=== PATIENT | male | born 1965 | race Caucasian/White ===

== ENCOUNTER 2018-04-21 20:18 | Emergency (ER) | payer MEDICAID ==
[~2018-04-21 20:18] MED LIST: ATEN-65 PO; CLI150 PO; DIA5 PO; DOXY-181 PO; HYDR12.556 PO; LISI20TA29 PO; LOR5/325 PO; MECL25TA34 PO; MOMR ENA; OMEP-218 PO; ONDA4TAB PO; VALS-25 PO
--- NOTE | 2018-04-21 20:19 | ER Report ---
History and Physical Time Seen By MD: 20:21 HPI/ROS CHIEF COMPLAINT: Shortness of breath, sweats, chills and fever HISTORY OF PRESENT ILLNESS: 52-year-old male who is normally very good health. He had not worked out in a while. He participate in a basketball game on Sunday afternoon for 2 hours. He had a mild dry cough prior to participating. Patient was exhausted after the game. He remained exhausted throughout the weekend having a fever and chills. He's had a productive cough of colored sputum. He's been having some diaphoresis. Patient denies history of cardiac disease. He's had no chest pain. He's never had rhabdomyolysis before. Patient denies exposure to ill contacts. Patient did not get a flu vaccine this season. P atient describes diffuse body aches. Patient notes some nausea but no vomiting. He's had no dysuria. He notes no rashes or swollen joints. She has never smoked and has no history of COPD. REVIEW OF SYSTEMS: Respiratory: As above Cardiovascular: No chest pain, no palpitations. Gastrointestinal: No vomiting, no abdominal pain. Musculoskeletal: No back pain. Allergies: Coded Allergies: Penicillins (Verified Allergy, Unknown, 01/19/14) Home Meds Active Scripts Codeine Phosphate/Guaifenesin (Robafen AC Oral Solution) 10 Mg-100 Mg/5 Ml Liquid, 5-10 ML PO Q4H PRN for cough, #120 Prov:CRYSTAL NASCIMENTO DO 04/21/18 Levofloxacin 500 Mg Tab (LEVAQUIN 500 MG TAB) 500 Mg Tablet, 500 MG PO DAILY for pnumonia, #6 TAB Prov:CRYSTAL NASCIMENTO DO 04/21/18 Mometasone Furoate (NASONEX) 17 Gm Aspers, 2 SPRAYS JUAN M BID, #1 BOTTLE 0 Refills Prov:SHERRY MELO MD 01/10/17 Doxycycline Hyclate (DOXYCYCLINE HYCLATE) 100 Mg Capsule, 100 MG PO BID, #20 CAPSULE 0 Refills Prov:SHERRY MELO MD 01/10/17 Reported Medications Hydrochlorothiazide (HYDROCHLOROTHIAZIDE) 12.5 Mg Capsule, 1 TAB PO QDAY, CAPSULE 01/10/17 Atenolol (ATENOLOL) 25 Mg Tablet, 1 TAB PO QDAY, TAB TAKE ONE TABLET BY MOUTH ONCE A DAY 01/17/14 Lisinopril (LISINOPRIL) 20 Mg Tablet, 40 MG PO QDAY 01/17/14 Reviewed Nurses Notes: Yes Old Medical Records Reviewed: Yes Hx Smoking: No Smoking Status: Never Smoker Hx Substance Use Disorder: No Hx Alcohol Use: No Constitutional Vital Sign - Last 24 Hours 04/21/18 04/21/18 04/21/18 04/21/18 20:23 20:23 20:30 20:33 Temp 99.5 Pulse 92 Resp 20 B/P (MAP) 158/110 158/110 (126) 156/113 (127) Pulse Ox 87 O2 Delivery Room Air O2 Flow Rate 2.0 04/21/18 04/21/18 04/21/18 04/21/18 20:45 20:48 21:00 21:15 Pulse 84 Resp 21 B/P (MAP) 151/94 (113) 150/93 (112) 157/93 (114) Pulse Ox 93 04/21/18 04/21/18 04/21/18 04/21/18 21:18 21:30 21:35 21:45 Pulse 90 85 Resp 15 24 B/P (MAP) 143/95 (111) ???/??? (1665) Pulse Ox 95 94 04/21/18 04/21/18 04/21/18 04/21/18 22:00 22:05 22:15 22:30 Pulse 80 80 Resp 19 17 B/P (MAP) 141/96 (111) 141/91 (108) Pulse Ox 95 04/21/18 04/21/18 04/21/18 04/21/18 22:30 22:30 22:35 22:45 Pulse 83 Resp 9 B/P (MAP) 138/88 (105) 142/89 (106) Pulse Ox 94 96 O2 Delivery Nasal Cannula O2 Flow Rate 2.0 04/21/18 04/21/18 04/21/18 04/21/18 23:05 23:11 23:12 23:28 Pulse 87 84 98 Resp 16 16 16 Pulse Ox 90 88 O2 Delivery Room Air Physical Exam Vital signs stable, low-grade fever, pulse ox borderline at 88%, normal respiratory rate, without tachypnea General Appearance: The patient is alert, has no immediate need for airway protection and no current signs of toxicity., Skin, red, warm, diaphoretic HEENT: Pupils equal and round no injection. Oropharynx no redness or exudate, mucous. Membranes are moist Respiratory: Rhonchorous respirations bilaterally, expiratory wheezing throughout. Cardiac: regular rate and rhythm Gastrointestinal: Abdomen is soft and non tender, no masses, bowel sounds normal. Musculoskeletal: Neck: Neck is supple and non tender. No lymphadenopathy, no JVD Extremities have full range of motion and are non tender. No edema, no calf ten derness Skin: No rashes or lesions. DIFFERENTIAL DIAGNOSIS: After history and physical exam differential diagnosis was considered for shortness of breath including but not limited to pulmonary infectious process, COPD, asthma, pulmonary embolus and congestive heart failure. Medical Decision Making Data Points Result Diagram: 04/21/18202904/21/182029 Laboratory Hematology Test 04/21/18 20:30 04/21/18 20:36 04/21/18 20:44 Red Blood Count 5.62 M/uL (4.00-5.60) Mean Corpuscular Volume 85.1 fL (80.0-96.0) Mean Corpuscular Hemoglobin 30.3 pg (26.0-33.0) Mean Corpuscular Hemoglobin Concent 35.6 g/dL (32.0-36.0) Red Cell Distribution Width 12.4 % (11.5-14.5) Mean Platelet Volume 7.1 fL (7.2-11.1) Neutrophils (%) (Auto) 83.9 % (39.4-72.5) Lymphocytes (%) (Auto) 7.5 % (17.6-49.6) Monocytes (%) (Auto) 8.0 % (4.1-12.4) Eosinophils (%) (Auto) 0.1 % (0.4-6.7) Basophils (%) (Auto) 0.5 % (0.3-1.4) Nucleated RBC Relative Count (auto) 0.1 /100WBC Neutrophils # (Auto) 10.1 K/uL (2.0-7.4) Lymphocytes # (Auto) 0.9 K/uL (1.3-3.6) Monocytes # (Auto) 1.0 K/uL (0.3-1.0) Eosinophils # (Auto) 0.0 K/uL (0.0-0.5) Basophils # (Auto) 0.1 K/uL (0.0-0.1) Nucleated RBC Absolute Count (auto) 0.01 K/uL Erythrocyte Sedimentation Rate 21 mm/HOUR (0-20) D-Dimer Quantitative (PE/DVT) 0.63 ug/ml (0-0.50) Sodium Level 137 mmol/L (137-145) Potassium Level 3.3 mmol/L (3.5-5.0) Chloride Level 100 mmol/L (98-107) Carbon Dioxide Level 25 mmol/L (22-30) Blood Urea Nitrogen 15 mg/dl (9-21) Creatinine 1.10 mg/dl (0.66-1.25) Glomerular Filtration Rate Calc > 60.0 Random Glucose 134 mg/dl (75-110) Lactate 0.9 mmol/L (0.7-2.1) Calcium Level 8.8 mg/dl (8.4-10.2) Total Bilirubin 0.9 mg/dl (0.2-1.3) Aspartate Amino Transf (AST/SGOT) 33 U/L (0-35) Alanine Aminotransferase (ALT/SGPT) 44 U/L (0-56) Alkaline Phosphatase 79 U/L (0-126) Total Creatine Kinase 365 U/L (55-170) Troponin I 0.021 ng/ml C-Reactive Protein 8.5 mg/dl (<1.0) Total Protein 7.6 g/dl (6.3-8.2) Albumin 4.2 g/dl (3.5-5.0) Influenza Virus Type A (PCR) Negative (NEGATIVE) Influenza Virus Type B (PCR) Negative (NEGATIVE) Urine Color Yellow Urine Clarity Clear Urine pH 5.0 pH (4.8-9.5) Urine Specific [place] 1.025 Urine Protein 30 mg/dL (NEGATIVE) Urine Glucose (UA) Negative mg/dL (NEGATIVE) Urine Ketones 20 mg/dL (NEGATIVE) Urine Blood Negative (NEGATIVE) Urine Nitrite Negative (NEGATIVE) Urine Bilirubin Negative (NEGATIVE) Urine Urobilinogen 2.0 mg/dL (0.2-1.9) Urine Leukocyte Esterase Negative (NEGATIVE) Urine RBC 5 /HPF (0-2/HPF) Urine WBC 3 /HPF (0-5/HPF) Urine Squamous Epithelial Cells None /LPF (</=FEW) Urine Bacteria Negative /HPF (NONE-FEW) Urine Mucus Few /HPF (NONE-FEW) Chemistry Test 04/21/18 20:30 04/21/18 20:36 04/21/18 20:44 White Blood Count 12.0 k/uL (4.5-11.0) Red Blood Count 5.62 M/uL (4.00-5.60) Hemoglobin 17.0 g/dL (14.0-18.0) Hematocrit 47.8 % (42.0-52.0) Mean Corpuscular Volume 85.1 fL (80.0-96.0) Mean Corpuscular Hemoglobin 30.3 pg (26.0-33.0) Mean Corpuscular Hemoglobin Concent 35.6 g/dL (32.0-36.0) Red Cell Distribution Width 12.4 % (11.5-14.5) Platelet Count 226 K/uL (150-450) Mean Platelet Volume 7.1 fL (7.2-11.1) Neutrophils (%) (Auto) 83.9 % (39.4-72.5) Lymphocytes (%) (Auto) 7.5 % (17.6-49.6) Monocytes (%) (Auto) 8.0 % (4.1-12.4) Eosinophils (%) (Auto) 0.1 % (0.4-6.7) Basophils (%) (Auto) 0.5 % (0.3-1.4) Nucleated RBC Relative Count (auto) 0.1 /100WBC Neutrophils # (Auto) 10.1 K/uL (2.0-7.4) Lymphocytes # (Auto) 0.9 K/uL (1.3-3.6) Monocytes # (Auto) 1.0 K/uL (0.3-1.0) Eosinophils # (Auto) 0.0 K/uL (0.0-0.5) Basophils # (Auto) 0.1 K/uL (0.0-0.1) Nucleated RBC Absolute Count (auto) 0.01 K/uL Erythrocyte Sedimentation Rate 21 mm/HOUR (0-20) D-Dimer Quantitative (PE/DVT) 0.63 ug/ml (0-0.50) Glomerular Filtration Rate Calc > 60.0 Lactate 0.9 mmol/L (0.7-2.1) Calcium Level 8.8 mg/dl (8.4-10.2) Total Bilirubin 0.9 mg/dl (0.2-1.3) Aspartate Amino Transf (AST/SGOT) 33 U/L (0-35) Alanine Aminotransferase (ALT/SGPT) 44 U/L (0-56) Alkaline Phosphatase 79 U/L (0-126) Total Creatine Kinase 365 U/L (55-170) Troponin I 0.021 ng/ml C-Reactive Protein 8.5 mg/dl (<1.0) Total Protein 7.6 g/dl (6.3-8.2) Albumin 4.2 g/dl (3.5-5.0) Influenza Virus Type A (PCR) Negative (NEGATIVE) Influenza Virus Type B (PCR) Negative (NEGATIVE) Urine Color Yellow Urine Clarity Clear Urine pH 5.0 pH (4.8-9.5) Urine Specific [place] 1.025 Urine Protein 30 mg/dL (NEGATIVE) Urine Glucose (UA) Negative mg/dL (NEGATIVE) Urine Ketones 20 mg/dL (NEGATIVE) Urine Blood Negative (NEGATIVE) Urine Nitrite Negative (NEGATIVE) Urine Bilirubin Negative (NEGATIVE) Urine Urobilinogen 2.0 mg/dL (0.2-1.9) Urine Leukocyte Esterase Negative (NEGATIVE) Urine RBC 5 /HPF (0-2/HPF) Urine WBC 3 /HPF (0-5/HPF) Urine Squamous Epithelial Cells None /LPF (</=FEW) Urine Bacteria Negative /HPF (NONE-FEW) Urine Mucus Few /HPF (NONE-FEW) Coagulation Test 04/21/18 20:30 D-Dimer Quantitative (PE/DVT) 0.63 ug/ml Urinalysis Test 04/21/18 20:44 Urine Color Yellow Urine Clarity Clear Urine pH 5.0 pH (4.8-9.5) Urine Specific [place] 1.025 Urine Protein 30 mg/dL (NEGATIVE) Urine Glucose (UA) Negative mg/dL (NEGATIVE) Urine Ketones 20 mg/dL (NEGATIVE) Urine Blood Negative (NEGATIVE) Urine Nitrite Negative (NEGATIVE) Urine Bilirubin Negative (NEGATIVE) Urine Urobilinogen 2.0 mg/dL (0.2-1.9) Urine Leukocyte Esterase Negative (NEGATIVE) Urine RBC 5 /HPF (0-2/HPF) Urine WBC 3 /HPF (0-5/HPF) Urine Squamous Epithelial Cells None /LPF (</=FEW) Urine Bacteria Negative /HPF (NONE-FEW) Urine Mucus Few /HPF (NONE-FEW) EKG/Imaging EKG Interpretation 12 lead EK Rhythm: normal sinus rhythm [place]: normal QRS: normal ST segments: normal, no evidence of ischemia Imaging Results: CT scan of the CTA pulmonary angiogram was obtained. The results of the study are EXAMINATION: CTA of the chest with IV contrast HISTORY: Hypoxia. Dyspnea. TECHNIQUE: Pulmonary embolus protocol - Thin axial CT images of the chest were obtained with IV contrast during maximal pulmonary arterial opacification. Reconstruction of the source data includes multiplanar 2D coronal and sagittal reconstructed images, and 3D coronal and sagittal MIP images. [employer] images have been stored on PACS. One of the following dose optimization techniques was utilized in the performance of this exam: Automated exposure control; adjustment of the mA and/or kV according to the patient's size; or use of an iterative reconstruction technique. Specific details can be referenced in the facility's radiology CT exam operational policy. Contrast: 75 mL of IV Isovue-370. COMPARISON: None. FINDINGS: Pulmonary arteries: The pulmonary arteries are well opacified, without suspicious filling defect. Heart, aorta, and great vessels: Normal caliber thoracic aorta, without aneurysm or dissection. Normal heart size. No pericardial effusion. Lungs and pleura: Patchy infiltrate in the left upper lobe posteriorly is compatible with pneumonia. The left lower lobe and right lung are clear. No pl eural effusion. The central airways are patent. Mediastinum and sebas: Negative. Visualized upper abdomen: Unremarkable. Chest wall: Negative. Bones: Negative. IMPRESSION: 1. No evidence of pulmonary embolism. 2. Patchy infiltrate in the left upper lobe, compatible with pneumonia. The study was read by the radiologist. I viewed the images myself on the PACS system. ED Course/Re-evaluation Clinical Indication for ER IV: Hydration, IV Access ED Course Patient was admitted to an examination room. H&P was done. The differential diagnoses was considered. Patient's been ill for 2 days. He has a productive cough. He's been having fever, chills and sweats. Patient notes that 2 days ago. He began to have a dry cough. He played basketball aggressively for 2 hours on Sunday afternoon which exhausted him. He's been run down and exhausted the whole weekend. He's been having drenching sweats. She has no history of cardiac disease. He does not have chest pain while exerting himself. Patient's never had rhabdomyolysis. Patient's diagnostic show any show a mildly elevated white blood cell count of 12,000. There is a left shift. Patient's EKG is unremarkable for evidence of ischemia. His troponin is negative. His d-dimer is elevated and he has hypoxic into the upper 80s. A CTA pulmonary angiogram is ordered. His chest x-ray is canceled. The CTA pulmonary angiogram shows no evidence of pulmonary embolus and there is a patchy infiltrate in the left upper lobe consistent with pneumonia. Patient's treated with Rocephin 1 g IV and Levaquin to go home. Agents given. Sodium Medrol 125 mg. He receives DuoNeb 3. He's dispensed an albuterol inhaler. Discharged home on Levaquin and Robitussin before meals cough syrup. He is advised to increase his intake of fluids and ibuprofen 600 mg 3 times daily. Agents advised a low threshold return for any worsening. Decision to Disposition Date: Apr 21, 2018 Decision to Disposition Time: 22:59 Depart Departure Latest Vital Signs Vital Signs Date Time Temp Pulse Resp B/P (MAP) Pulse Ox O2 Delivery O2 Flow Rate FiO2 04/21/18 23:28 98 16 04/21/18 23:12 88 Room Air 04/21/18 22:45 142/89 (106) 04/21/18 22:30 2.0 04/21/18 20:23 99.5 Impression: Primary Impression: Community acquired pneumonia Condition: Improved Disposition: HOME OR SELF-CARE New Scripts Codeine Phosphate/Guaifenesin (Robafen AC Oral Solution) 10 Mg-100 Mg/5 Ml Liquid 5-10 ML PO Q4H PRN for cough, #120 Prov: CRYSTAL NASCIMENTO DO 04/21/18 Levofloxacin 500 Mg Tab (LEVAQUIN 500 MG TAB) 500 Mg Tablet 500 MG PO DAILY for pnumonia, #6 TAB Prov: CRYSTAL NASCIMENTO DO 04/21/18 Patient Instructions: Bacterial Pneumonia (ED) Problem Qualifiers Primary Impression: Community acquired pneumonia Laterality: left Lung location: upper lobe of lung Qualified Codes: J18.1 - Lobar pneumonia, unspecified organism CRYSTAL NASCIMENTO DO Apr 21, 2018 20:19
[2018-04-21] MEDS: NS(*) 0.9% 1000 ML BAG 1,000 ML IV ONE (20:35)
[2018-04-21 20:42] LABS: PLATELET COUNT, AUTOMATED 226 K/uL (150-450)
--- NOTE | 2018-04-21 21:00 | EKG ---
FACILITY: [facility] PATIENT NAME: LEAH CASON : [id number] MR: [id number] V: [id number] EXAM DATE: ORDERING PHYSICIAN: CRYSTAL NASCIMENTO TECHNOLOGIST: Test Reason : Blood Pressure : / mmHG Vent. Rate : 086 BPM Atrial Rate : 086 BPM P-R Int : 174 ms QRS Dur : 090 ms QT Int : 392 ms P-R-T Axes : 030 -07 012 degrees QTc Int : 469 ms Normal sinus rhythm Septal infarct (cited on or before 17-JAN-2014) Abnormal ECG When compared with ECG of 11-DEC-2016 15:28, No significant change was found Confirmed by Jean Pedroza ([id number]) on 04/21/2018 10:59:33 PM Referred By: Confirmed By:Jean Deutsch
[2018-04-21] MEDS ORDERED: IOPAMIDOL 76% 75 ML INFUS BTL 75 ML ONE (21:35)
[2018-04-21] MEDS ORDERED: NS(*) 0.9% 50 ML BAG 50 ML ONE (21:35)
[2018-04-21] MEDS: ALBUTEROL/IPRATROPIUM 3 ML NEB NEB ONE ×2 (22:29→23:18)
--- NOTE | 2018-04-21 22:32 | RADIOLOGY IMAGING REPORT ---
FACILITY: [facility] PATIENT NAME: Ildefonso Tolliver : 1965 MR: [id number] V: [id number] EXAM DATE: ORDERING PHYSICIAN: CRYSTAL NASCIMENTO TECHNOLOGIST: Location: [facility] Patient: Ildefonso Tolliver : 1965 Visit/Account:[id number] Date of Sevice: 04/21/2018 EXAMINATION: CTA of the chest with IV contrast HISTORY: Hypoxia. Dyspnea. TECHNIQUE: Pulmonary embolus protocol - Thin axial CT images of the chest were obtained with IV con trast during maximal pulmonary arterial opacification. Reconstruction of the source data includes mul tiplanar 2D coronal and sagittal reconstructed images, and 3D coronal and sagittal MIP images. Repres entative images have been stored on PACS. One of the following dose optimization techniques was utilized in the performance of this exam: Autom ated exposure control; adjustment of the mA and/or kV according to the patient's size; or use of an i terative reconstruction technique. Specific details can be referenced in the facility's radiology C T exam operational policy. Contrast: 75 mL of IV Isovue-370. COMPARISON: None. FINDINGS: Pulmonary arteries: The pulmonary arteries are well opacified, without suspicious filling defect. Heart, aorta, and great vessels: Normal caliber thoracic aorta, without aneurysm or dissection. Norm al heart size. No pericardial effusion. Lungs and pleura: Patchy infiltrate in the left upper lobe posteriorly is compatible with pneumonia. The left lower lobe and right lung are clear. No pleural effusion. The central airways are patent. Mediastinum and sebas: Negative. Visualized upper abdomen: Unremarkable. Chest wall: Negative. Bones: Negative. IMPRESSION: 1. No evidence of pulmonary embolism. 2. Patchy infiltrate in the left upper lobe, compatible with pneumonia. Report Dictated By: Kang Garcia MD at 04/21/2018 10:20 PM Report E-Signed By: Kang Garcia MD at 04/21/2018 10:28 PM [id number]
[2018-04-21 22:45] VITALS: BP 142/89
[2018-04-21] MEDS: cefTRIAXone 1 GM VIAL IVP ONE (22:56)
[2018-04-21] MEDS: methylPREDNIS SUCC 125 MG/2ML IVP ONE (22:56)
[2018-04-21] MEDS ORDERED: LEVO-85 PO (23:01)
[2018-04-21] MEDS ORDERED: CODE473L3 PO (23:01)
[2018-04-21] MEDS: LEVOFLOXACIN 500 MG TAB PO ONE (23:03)
[2018-04-21] MEDS: ALBUTEROL 8 GM INHALER INH ONE (23:18)
[2018-04-21] MEDS: guaiFENesin/CODEINE 5 ML UDBTL PO ONE (23:43)
== END 2018-04-21 23:43 | disposition home or self-care (01) ==
LOC: ER 20:26
DX: J18.1 Lobar pneumonia, unspecified organism (principal); R94.31 Abnormal electrocardiogram [ECG] [EKG]
CPT/HCPCS: 36415; 71275; 81001; 82550; 83605; 84484; 85025; 85379; 85651; 86140; 87040; 87502; 93005; 94640; 96374; 96375; 99284; J0696; J2930; J3535; J7030; J7050; J7620; Q9967; 82040; 82247; 82310; 82374; 82435; 82565; 82947; 84075; 84132; 84155; 84295; 84450; 84460; 84520

== ENCOUNTER → 2018-08-19 | Outpatient (REF) | payer MEDICAID ==
[~2018-08-19] MED LIST changes: +CODE473L3 PO; +LEVO-85 PO
== END ==
LOC: ZZSENDIN 12:26
PROVIDERS: ATTEND Physician Assistant
DX: M25.461 Effusion, right knee (principal)
CPT/HCPCS: 87071; 89060